=== PATIENT | female | born 1995 | race Caucasian/White ===

== ENCOUNTER 2019-01-09 10:34 | Emergency (ER) | payer OTHER ==
[2019-01-09 10:40] VITALS: BP 117/72
--- NOTE | 2019-01-09 11:40 | XRAY Report ---
Reason: Trauma Procedure Date: 01/09/2019 Accession Number: [id number] / [id number] Procedure: XR - Ankle 3 View LT CPT Code: FULL RESULT: EXAM: LEFT ANKLE RADIOGRAPHY 3 VIEWS EXAM DATE: 01/09/2019. CLINICAL HISTORY: Pain. Tripped in a pothole last night. COMPARISON: None. TECHNIQUE: AP, oblique and lateral views. FINDINGS: Bones: Normal. No fractures or bone lesions. Joints: Normal. No effusion. No subluxations. The ankle mortise is normally aligned. Soft Tissues: Normal. No soft tissue swelling. IMPRESSION: Normal left ankle radiography. [facility]
--- NOTE | 2019-01-09 12:24 | ED Physician Documentation ---
PD HPI LOWER EXT INJURY - Stated complaint Stated Complaint: GLF - Chief complaint Chief Complaint: Ext Problem - History obtained from History obtained from: Patient - History of Present Illness PD HPI LOW EXT INJURY LOCATION: Left, Ankle Type of injury: Fall, Twist Where injury occurred: Other (backyard) Timing - onset: Last night Timing - duration: Days (1) Timing - details: Gradual onset Pain level max: 7 Pain level now: 5 Improved by: Rest, Ice, Immobilization Worsened by: Moving, Palpating Associated symptoms: Swelling. No: Weakness, Numbness, Tingling Recently seen: Not recently seen Review of Systems : denies: Now EGA Musculoskeletal: denies: Neck pain, Back pain PD PAST MEDICAL HISTORY - Past Medical History Past Medical History: Yes Endocrine/Autoimmune: HyPOthyroidism - Past Surgical History Past Surgical History: No - Present Medications Home Medications: Ambulatory Orders Medication Instructions Recorded Confirmed EPINEPHrine [Epipen 2-Maverick] 0.3 mg IJ ONCE PRN #1 unit 03/27/16 Levothyroxine [Synthroid] 0 mcg PO DAILY 03/27/16 03/27/16 - Allergies Allergies/Adverse Reactions: Allergies Allergy/AdvReac Type Severity Reaction Status Date / Time No Known Drug Allergies Allergy Verified 01/09/19 10:40 - Social History Does the pt smoke?: No Smoking Status: Never smoker Does the pt drink ETOH?: No Does the pt have substance abuse?: No - Immunizations Immunizations are current?: Yes PD ED PE NORMAL - Vitals Vital signs reviewed: Yes - General General: Alert and oriented X 3, No acute distress - Derm Derm: Warm and dry - Extremities Extremities: Other (L ankle - TTP lateral malleolus. NVI. STS present. o/w normal exam of foot and ankle) - Neuro Neuro: Alert and oriented X 3 Results - Vitals Vitals: Vital Signs - 24 hr 01/09/19 10:39 Temperature 36.8 C Heart Rate 88 Respiratory 16 Rate Blood Pressure 117/72 O2 Saturation 99 Oxygen O2 Source Room air - Rads (name of study) L ankle xray Radiology: Prelim report reviewed, EMP read contemporaneously, See rad report (no bony abnormality.) PD MEDICAL DECISION MAKING - ED course Complexity details: reviewed results, considered differential, d/w patient ED course: Patient with a left ankle sprain. Given crutches and an air splint. Will utilize Motrin and Tylenol as needed for pain at home. No fracture on x-ray. P atient counseled regarding signs and symptoms for which I believe and urgent re- evaluation would be necessary. Patient with good understanding of and agreement to plan and is comfortable going home at this time This document was made in part using voice recognition software. While efforts are made to proofread this document, sound alike and grammatical errors may occur. Departure - Departure Disposition: Home, Self Care Clinical Impression: Left ankle sprain Qualifiers: Encounter type: initial encounter Involved ligament of ankle: unspecified ligament Qualified Code(s): S93.402A - Sprain of unspecified ligament of left a nkle, initial encounter Condition: Good Instructions: ED Sprain Ankle Follow-Up: JHONNY MARSH [Primary Care Provider] - Within 1 week Comments: You may bear weight as tolerated. Return if you worsen. Follow-up with your doctor for further care. Forms: Activity restrictions
== END 2019-01-09 12:53 | disposition home or self-care (01) ==
LOC: ED 10:34
DX: S93.402A Sprain of unspecified ligament of left ankle, initial encounter (principal); X50.1XXA Overexertion from prolonged static or awkward postures, initial encounter; Y92.007 Garden or yard of unspecified non-institutional (private) residence as the place of occurrence of the external cause
CPT/HCPCS: 99282; 99283

== ENCOUNTER 2019-10-10 16:14 | Emergency (ER) | payer OTHER ==
[2019-10-10 16:44] LABS: RAPID STREP SCREEN POSITIVE (Negative)
[2019-10-10] MEDS ORDERED: DEXAMETHASONE 10 MG/ML VIAL PO STA (18:06)
[2019-10-10] MEDS ORDERED: CHERRY SYRUP 10 ML UDC PO ONE (18:06)
--- NOTE | 2019-10-10 18:08 | ED Physician Documentation ---
PD HPI HEENT - Stated complaint Stated Complaint: FEVER, N/D, THROAT PX/SWELLING - Chief complaint Chief Complaint: Heent - History obtained from History obtained from: Patient - History of Present Illness Timing - onset: How many days ago (2) Timing - duration: Days (2) Timing - details: Gradual onset, Still present Location: Throat Improves: Medication Worsens: Swalllowing Associated symptoms: Fever, Congestion, Swollen nodes, Headache Similar symptoms before: Diagnosis (strep) Recently seen: Not recently seen - Additional information Additional information: Previously well 24-year-old active [employer] female has developed a sore throat fever headache abdominal pain and muscle aches and pains. She has been sick for about 2 days she has been able to swallow and keep yourself hydrated. Review of Systems Constitutional: reports: Fever, Myalgias, Fatigue Eyes: denies: Decreased vision Ears: denies: Ear pain Nose: reports: Congestion. denies: Rhinorrhea / runny nose Throat: reports: Sore throat Cardiac: denies: Chest pain / pressure, Palpitations Respiratory: denies: Dyspnea, Cough GI: reports: Abdominal Pain, Nausea, Diarrhea. denies: Vomiting : denies: Dysuria PD PAST MEDICAL HISTORY - Past Medical History Endocrine/Autoimmune: HyPOthyroidism - Past Surgical History Past Surgical History: No - Present Medications Home Medications: Ambulatory Orders Medication Instructions Recorded Confirmed EPINEPHrine [Epipen 2-Maverick] 0.3 mg IJ ONCE PRN #1 unit 03/27/16 Levothyroxine [Synthroid] 0 mcg PO DAILY 03/27/16 03/27/16 Amoxicillin 875 mg PO BID #20 tablet 10/10/19 - Allergies Allergies/Adverse Reactions: Allergies Allergy/AdvReac Type Severity Reaction Status Date / Time No Known Drug Allergies Allergy Verified 10/10/19 16:25 - Social History Does the pt smoke?: No Smoking Status: Never smoker Does the pt drink ETOH?: No Does the pt have substance abuse?: No - Immunizations Immunizations are current?: Yes PD ED PE NORMAL - Vitals Vital signs reviewed: Yes (normal ) - General General: Alert and oriented X 3, No acute distress, Well developed/nourished - HEENT HEENT: Atraumatic, PERRL, EOMI, Ears normal, Other (The pharynx is with 2+ exudative tonsils with tonsil lith.) - Neck Neck: Supple, no meningeal sign, No bony TTP - Cardiac Cardiac: RRR, No murmur - Respiratory Respiratory: No respiratory distress, Clear bilaterally - Abdomen Abdomen: Soft, Non tender - Back Back: No CVA TTP, No spinal TTP - Derm Derm: Normal color, Warm and dry, No rash - Extremities Extremities: No deformity, No edema, No calf tenderness / cord - Neuro Neuro: Alert and oriented X 3, 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, No motor deficit, No sensory deficit, Normal speech Eye Opening: Spontaneous Motor: Obeys Commands Verbal: Oriented GCS Score: 15 - Psych Psych: Normal mood, Normal affect Results - Vitals Vitals: Vital Signs - 24 hr 10/10/19 16:25 Temperature 36.8 C Heart Rate 89 Respiratory 14 Rate Blood Pressure 126/64 O2 Saturation 100 Oxygen O2 Source Room air - Labs Labs: Laboratory Tests 10/10/19 16:30 Group A Strep Rapid POSITIVE H PD MEDICAL DECISION MAKING - ED course Complexity details: considered differential, d/w patient ED course: 24-year-old female with signs and symptoms of streptococcal pharyngitis has streptococcal pharyngitis on rapid strep testing. She is administered dexamethasone 10 mg orally we will place her on to some amoxicillin and take her off work for 3 days. Departure - Departure Disposition: 01 Home, Self Care Clinical Impression: Strep pharyngitis Condition: Stable Instructions: ED Strep Pharyngitis Conf Follow-Up: JHONNY MARSH [Primary Care Provider] - Prescriptions: Amoxicillin 875 mg PO BID #20 tablet Forms: Activity restrictions
[2019-10-10 18:14] VITALS: BP 127/74
== END 2019-10-10 18:14 | disposition home or self-care (01) ==
LOC: ED 16:14
DX: J02.0 Streptococcal pharyngitis (principal)
CPT/HCPCS: 87430; 99283; 99284; A9270

== ENCOUNTER 2023-05-28 12:12 | Outpatient (CLI) | payer OTHER ==
--- NOTE | 2023-05-28 18:46 | XRAY Report ---
PROCEDURE: Knee 3 View RT INDICATIONS: UNSPECIFIED KNEE PAIN OF RIGHT LOWER LEG INITIAL TECHNIQUE: 3 views of the right knee(s) were acquired. COMPARISON: None. FINDINGS: Bones: No fractures or dislocations. No suspicious bony lesions. Soft tissues: No knee joint effusion. No suspicious soft tissue calcifications or masses. IMPRESSION: No acute bony abnormality. Reviewed by: Chin Cobian MD on 05/28/2023 6:45 PM PDT Approved by: Chin Cobian MD on 05/28/2023 6:45 PM PDT Station ID: [id number]
== END 2023-05-28 12:13 | disposition home or self-care (01) ==
LOC: DI 12:12
PROVIDERS: ATTEND Specialist
DX: S89.91XA Unspecified injury of right lower leg, initial encounter (principal)